=== PATIENT | male | born 1995 | race American Indian/Alaskan Native ===

== ENCOUNTER 2016-12-15 03:14 | Emergency (ER) | payer BC ==
[2016-12-15 03:34] VITALS: BP 125/84
[2016-12-15] MEDS ORDERED: ZITHROMAX PO ONE (04:05)
[2016-12-15] MEDS ORDERED: XYLOCAINE 1% MPF 5 mL INFILTRATI ONE (04:05)
[2016-12-15] MEDS ORDERED: ROCEPHIN IM ONE (04:05)
--- NOTE | 2016-12-15 04:05 | Emergency Department Report ---
ED Male HPI - General Chief complaint: Urogenital-Male Stated complaint: PENILE DISCHARGE Source: patient Mode of arrival: Ambulatory Limitations: No Limitations - History of Present Illness MD Complaint: penile discharge, dysuria -: Gradual, days(s) Location: penis Radiation: none Severity: mild Severity scale (0 -10): 2 Quality: burning discharge. denies: rash, urinary retention, blood in urine, dysuria - Related Data Sexually active: Yes Previous Rx's Medication Instructions Recorded Last Taken Type Famotidine [Pepcid] 20 mg PO BID #60 tablet 09/07/14 Unknown Rx Lansoprazole [Prevacid] 15 mg PO QDAY #30 cap 09/07/14 Unknown Rx Promethazine [Phenergan] 25 mg PO Q6H PRN #10 tablet 09/07/14 Unknown Rx Gentamicin 0.3% Ophth Soln 2 drops OS QID #5 ml 12/15/14 Unknown Rx Acetaminophen/Codeine [Tylenol #3] 1 tab PO Q6H PRN #7 tab 04/28/16 Unknown Rx Doxycycline [Vibramycin CAP] 100 mg PO Q12HR #28 capsule 04/28/16 Unknown Rx Doxycycline [Vibramycin CAP] 100 mg PO Q12HR #20 capsule 12/15/16 Unknown Rx Allergies Allergy/AdvReac Type Severity Reaction Status Date / Time fish derived Allergy Hives Verified 12/14/14 23:45 Penicillins Allergy Nausea Verified 01/24/13 20:51 ED Review of Systems ROS: Stated complaint: PENILE DISCHARGE Other details as noted in HPI Constitutional: denies: chills, fever Eyes: denies: eye pain, eye discharge, vision change ENT: denies: ear pain, throat pain Respiratory: denies: cough, shortness of breath, wheezing Cardiovascular: denies: chest pain, palpitations Endocrine: no symptoms reported Gastrointestinal: denies: abdominal pain, nausea, diarrhea Genitourinary: dysuria, discharge. denies: urgency, frequency, hematuria, testicular pain, testicular mass Musculoskeletal: denies: back pain, joint swelling, arthralgia Skin: denies: rash, lesions Neurological: denies: headache, weakness, paresthesias Psychiatric: denies: anxiety, depression Hematological/Lymphatic: denies: easy bleeding, easy bruising ED Past Medical Hx - Past Medical History Previous Medical History?: Yes Hx HIV: Yes Additional medical history: AUTO IMMUNE HEPITITIS. - Surgical History Past Surgical History?: Yes Additional Surgical History: BIOPSY, LIVER - Social History Smoking Status: Current Every Day Smoker Substance Use Type: None - Medications Home Medications: Home Medications Medication Instructions Recorded Confirmed Last Taken Type Famotidine [Pepcid] 20 mg PO BID #60 tablet 09/07/14 Unknown Rx Lansoprazole [Prevacid] 15 mg PO QDAY #30 cap 09/07/14 Unknown Rx Promethazine [Phenergan] 25 mg PO Q6H PRN #10 tablet 09/07/14 Unknown Rx Gentamicin 0.3% Ophth Soln 2 drops OS QID #5 ml 12/15/14 Unknown Rx Acetaminophen/Codeine [Tylenol #3] 1 tab PO Q6H PRN #7 tab 04/28/16 Unknown Rx Doxycycline [Vibramycin CAP] 100 mg PO Q12HR #28 capsule 04/28/16 Unknown Rx Doxycycline [Vibramycin CAP] 100 mg PO Q12HR #20 capsule 12/15/16 Unknown Rx ED Physical Exam - General Limitations: No Limitations General appearance: alert, in no apparent distress - Head Head exam: Present: atraumatic, normocephalic - Eye Eye exam: Present: normal appearance - ENT ENT exam: Present: mucous membranes moist - Respiratory Respiratory exam: Present: normal lung sounds bilaterally. Absent: respiratory distress - Cardiovascular Cardiovascular Exam: Present: regular rate - GI/Abdominal GI/Abdominal exam: Present: soft. Absent: distended, tenderness, guarding, rebound, rigid - exam: Present: normal inspection. Absent: testicular tenderness, urethral discharge, scrotal swelling, vertical testicular lie, circumcision - Back Exam Back exam: Absent: CVA tenderness (R), CVA tenderness (L) - Neurological Exam Neurological exam: Present: alert, oriented X3 ED Course Vital Signs 12/15/16 03:31 Temperature 98.3 F Pulse Rate 83 Respiratory 20 Rate Blood Pressure 125/84 O2 Sat by Pulse 100 Oximetry Critical care attestation.: If time is entered above; I have spent that time in minutes in the direct care of this critically ill patient, excluding procedure time. ED Disposition Clinical Impression: Urethritis Disposition: DC-01 TO HOME OR SELFCARE Is pt being admited?: No Condition: Stable Instructions: Nonspecific Urethritis in Men (ED) Prescriptions: Doxycycline [Vibramycin CAP] 100 mg PO Q12HR #20 capsule Referrals: PRIMARY CARE, [Primary Care Provider] - 3-5 Days Forms: STI Treatment and Prevention
[2016-12-15 04:12] LABS: Bilirubin,Urine NEG (Negative); Blood,Urine NEG (Negative); Ketones,Urine NEG (Negative); Leukocyte Esterase,Urine NEG (Negative); Mucus,Urine FEW /HPF; Nitrite,Urine NEG (Negative); Protein,Urine <15 mg/dL mg/dL (Negative)
== END 2016-12-15 04:40 | disposition home or self-care (01) ==
LOC: ED 03:14
DX: N34.2 Other urethritis (principal); F17.200 Nicotine dependence, unspecified, uncomplicated; Z88.0 Allergy status to penicillin; Z91.013 Allergy to seafood
CPT/HCPCS: 81001; 96372; 99283; J0696

== ENCOUNTER 2018-07-09 17:42 | Emergency (ER) | payer SELFPAY | END 2018-07-09 20:00 | disposition left against medical advice (07) | LOC: ED 17:42 ==